=== PATIENT | male | born 1955 ===

== ENCOUNTER 2021-08-15 08:45 | Inpatient (IN) | payer OTHER ==
[~2021-08-15] VITALS: Ht 165.1 cm; Wt 79.4 kg
[2021-08-15] MEDS ORDERED: TOPROL XL50 M1 PO (12:01)
[2021-08-15] MEDS ORDERED: FOSINOPRIL SODI10 MG PO (12:01)
== END 2021-08-19 11:45 | disposition home or self-care (01) | DRG 661 ==
LOC: O/R 08-17 05:45 → SURH 08-17 07:00
PROVIDERS: ADMIT Urology; ATTEND Urology
PROC: BT1FZZZ Fluoroscopy of Left Kidney, Ureter and Bladder (ICD-10-PCS; 2021-08-17)
PROC: 0TC13ZZ Extirpation of Matter from Left Kidney, Percutaneous Approach (ICD-10-PCS; principal; 2021-08-17 07:00)
PROC: BT0 Imaging, Urinary System, Plain Radiography (ICD-10-PCS; 2021-08-19)
DX: N20.0 Calculus of kidney (principal); I10 Essential (primary) hypertension